=== PATIENT | male | born 1945 | race Hispanic/Latino ===

== ENCOUNTER 2021-08-21 06:18 | Day surgery (SDC) | payer MEDICARE ==
[2021-08-21] MEDS ORDERED: ASPIRIN EC 325 MG TAB PO NR (07:00)
[2021-08-21] MEDS ORDERED: SODIUM CHLORIDE 0.9% 500 ML 500 ML IV SCH (07:00)
[2021-08-21 07:13] LABS: Basophils % (Auto) 0.5 % (0.0-1.8); Eosinophils # (Auto) 0.1 K/mm3 (0.0-0.4); Hematocrit 40.1 % (35.5-45.6); Hemoglobin 13.6 gm/dl (11.8-15.2); Lymphocytes # (Auto) 1.4 K/mm3 (1.2-5.4); Lymphocytes % (Auto) 27.5 % (13.4-35.0); Mean Corpuscular HGB Conc 34 % (32-34); Mean Corpuscular Volume 93 fl (84-94); Monocytes # (Auto) 0.4 K/mm3 (0.0-0.8); Platelet Count 167 K/mm3 (140-440); Red Blood Count 4.31 M/mm3 (3.65-5.03); Red Cell Distribution Width 13.3 % (13.2-15.2)
[2021-08-21 07:24] LABS: INR 0.89 (0.87-1.13)
[2021-08-21 07:25] LABS: Partial Thromboplastin Time 31.6 Sec. (24.2-36.6)
[2021-08-21 07:30] LABS: BUN/Creatinine Ratio 10; Blood Urea Nitrogen 8 mg/dL (9-20); Calcium 9.5 mg/dL (8.4-10.2); Hemolysis Index 4
[2021-08-21] MEDS ORDERED: NITROGLYCERIN SYRINGE 3 ML ONE (08:11)
[2021-08-21] MEDS ORDERED: VERAPAMIL 5 MG/2 ML INJ ONE (08:11)
[2021-08-21] MEDS ORDERED: HEPARIN/NS 5000 UNIT/500ML 1,000 ML IR ONE (08:11)
[2021-08-21] MEDS ORDERED: HEPARIN 10,000 UNITS/10 ML VIAL ONE (08:11)
[2021-08-21] MEDS ORDERED: LIDOCAINE (1%) 10 MG/1 ML VIAL 20 ML MDV ONE (08:12)
[2021-08-21] MEDS ORDERED: fentaNYL 100 MCG/2 ML INJ ONE (08:28)
[2021-08-21] MEDS ORDERED: MIDAZOLAM 2 MG/2 ML INJ ONE (08:28)
--- NOTE | 2021-08-21 09:23 | Short Stay Summary ---
Short Stay Documentation Date of service: 08/21/21 - History H&P: obtained from office - Allergies and Medications Current Medications: Allergies Tetanus Vaccines and Toxoid Allergy (Verified 08/21/21 06:50) Redness Home Medications Medication Instructions Recorded Confirmed Last Taken Type Acetaminophen [Non-Aspirin Extra 1,000 mg PO Q6H PRN 08/21/21 08/21/21 08/20/21 History Strength] Active Medications Sodium Chloride (Nacl 0.9% 500 Ml) 500 mls @ 50 mls/hr IV DIRECT VINCE Stop: 08/21/21 16:59 Last Admin: 08/21/21 07:59 Dose: 50 mls/hr - Brief post op/procedure progress note Date of procedure: 08/21/21 Pre-op diagnosis: sob Post-op diagnosis: same Procedure: see report, normal coronaries and normal lv function Anesthesia: local Estimated blood loss: minimal Pathology: none - Disposition Condition at discharge: Good Disposition: 01 HOME / SELF CARE / HOMELESS - Discharge Diagnoses (1) SOB (shortness of breath) on exertion Status: Acute Short Stay Discharge Plan Activity: advance as tolerated Diet: low fat, low cholesterol Wound: keep clean and dry Follow up with: LAURENT NOYOLA [Other] - 7 Days
[2021-08-21] MEDS ORDERED: HYDROcodone/ACETAMINOPHEN 5-325 MG TAB PO PRN (09:30)
[2021-08-21] MEDS ORDERED: traMADol 50 MG TAB PO PRN (09:30)
--- NOTE | 2021-08-21 10:27 | Cardiac Catherization Report ---
DATE OF SERVICE: 08/21/2021 LEFT HEART CATHETERIZATION CLINICAL INFORMATION: This is a 75-year-old male with persistent shortness of breath. Echocardiogram shows mild LV dysfunction, here for left heart catheterization for definitive diagnosis of cardiomyopathy and shortness of breath. Despite medical therapy, the patient cannot take beta yenni therapy. He is having persistent dizziness. The patient was done with moderate sedation started at 08:53, finished at 09:08, 15 minutes of moderate sedation. DESCRIPTION OF PROCEDURE: The patient's procedure was done via the right radial artery, sterile technique and local anesthesia. A 6-[place]ian radial sheath inserted. Left system with JL3.5 catheter. Left main is large and patent, bifurcates into large LAD, is patent. Diagonal 1 is a medium caliber, patent. Circumflex, large caliber was patent, goes to large OM1 that is patent. OM2 small caliber, was patent. RCA is a large caliber vessel, was patent. PDA, PLV are medium caliber vessel, patent. LV gram done in MALTESE and PATEL view shows normal LV function, EF 50% -55%. LVEDP of 11 mmHg, LV is 135, aortic is 135/70, no gradient across the aortic valve on pullback. A 5-[place]ian catheters all taken over guidewire. A 6-[place] radial sheath was discontinued. Radial band applied. No hematoma, no bleeding. SUMMARY: Left main patent, LAD patent, circumflex patent, RCA patent with normal LV function with normal left end-diastolic pressure. Noncardiac source of shortness of breath. TID: [id number] RECEIPT: [id number] MERVIN/ILYA/ELLEN
[2021-08-21 11:31] VITALS: BP 114/60
--- NOTE | 2021-08-22 11:28 | Electrocardiograph Report ---
[facility] Test Date: 2021-08-21 Test Time: 06:51:14 Pat Name: JACKI HUNG Department: Room: Gender: M Fall Internship: FLASH : 1945 Requested By: CORTEZ BAIRD Order Number: [id number] Reading MD: Cortez Baird Measurements Intervals [place] Rate: 81 P: 72 AK: 169 QRS: -35 QRSD: 108 T: 31 QT: 399 QTc: 463 Interpretive Statements Sinus rhythm Left axis deviation No previous ECG available for comparison Electronically Signed On 08-22-2021 11:27:47 EDT by Cortez Baird
== END 2021-08-21 12:10 | disposition home or self-care (01) ==
LOC: CATHLABREC 06:18 → EDBD 08:30 → CATHLABREC 12:10
PROVIDERS: ATTEND Internal Medicine
DX: R06.02 Shortness of breath (principal); I42.9 Cardiomyopathy, unspecified; R42 Dizziness and giddiness; R94.39 Abnormal result of other cardiovascular function study; Z79.899 Other long term (current) drug therapy; Z88.8 Allergy status to other drugs, medicaments and biological substances; Z98.890 Other specified postprocedural states
CPT/HCPCS: 36415; 80048; 85025; 85610; 85730; 93005; 93458; 99156; C1894; J1644; J1815; J2250; J3010; J7040; Q9967